=== PATIENT | female | born 1960 | race Caucasian/White ===

== ENCOUNTER 2018-06-02 07:25 | Outpatient (REF) | payer BC, SELFPAY ==
[2018-06-02 13:14] LABS: Hemoglobin A1C 6.4 % (4.5-6.2)
== END 2018-06-02 07:26 ==
LOC: NCHCN 07:25
PROVIDERS: PCP Family Medicine; Visit Provider Family Medicine
DX: E11.9 Type 2 diabetes mellitus without complications (principal)
CPT/HCPCS: 83036

== ENCOUNTER 2018-08-10 00:44 | Outpatient (CLI) | payer BC, SELFPAY ==
--- NOTE | 2018-08-10 11:30 | DI.MAMMO_ITS ---
SYMPTOM/DIAGNOSIS: SCREENING, Z12.31 MAMMOGRAMS: Mammograms were interpreted according to the usual protocol including computer analysis with CAD system, tomosynthesis and C view imaging. Comparison is made with exams from [id number]. The breasts are composed of heterogeneously dense fibroglandular tissue, breast density, Category C. No suspicious masses or suspicious microcalcifications are seen. There has been no significant change. IMPRESSION: Category 1C, negative mammogram. Yearly screening mammography is recommended. [facility] ASSESSMENT OF FINDINGS: Negative. Category 1. Patient will receive a letter notifying them of these results. Bi-RADS category C. The breasts are heterogeneously dense, which may obscure small masses.
== END 2018-08-10 01:04 ==
PROVIDERS: PCP Family Medicine; Visit Provider Family Medicine
DX: Z12.31 Encounter for screening mammogram for malignant neoplasm of breast (principal)
CPT/HCPCS: 77063; 77067

== ENCOUNTER 2019-03-21 10:42 | Outpatient (REF) | payer OTHER, SELFPAY ==
[2019-03-21 20:01] LABS: COMMENT (LAB VIEW ONLY) 193.18 mg/dL; Microalb ug/mg Crea 12.2 ug/mg Cr
== END 2019-03-21 11:02 ==
LOC: NCHCN 10:42
PROVIDERS: PCP Family Medicine; Visit Provider Family Medicine
DX: E11.9 Type 2 diabetes mellitus without complications (principal)
CPT/HCPCS: 82043; 82570

== ENCOUNTER 2019-08-12 12:50 | Outpatient (REF) | payer OTHER, SELFPAY ==
[2019-08-12 14:21] LABS: Anion Gap 10.9 mmol/L (3-11); BUN 13 mg/dL (7-18); CO2 26.1 mmol/L (21.0-32.0); CREATININE 0.67 mg/dL (0.55-1.02); Calcium 8.9 mg/dL (8.5-10.1); Chloride 105 mmol/L (98-107); Glucose 135 mg/dL (70-100); Potassium 4.2 mmol/L (3.5-5.1); Sodium 142 mmol/L (136-145); TSH (W/Ref FT4) 1.81 uIU/mL (0.36-3.74)
== END 2019-08-12 13:10 ==
LOC: NCHCN 12:50
PROVIDERS: PCP Family Medicine; Visit Provider Family Medicine
DX: E11.9 Type 2 diabetes mellitus without complications (principal)
CPT/HCPCS: 80048; 84443

== ENCOUNTER 2020-04-27 10:12 | Outpatient (REF) | payer OTHER, SELFPAY ==
[2020-04-27 18:11] LABS: HCT 41.8 % (36.0-46.0); HGB 13.2 g/dL (12.0-15.5); Mean Corp. HGB Concentration 31.6 g/dL (32.0-36.0); Mean Corpuscular Hemoglobin 28.3 pg (27.0-33.0); Mean Corpuscular Volume 89.5 fL (80-95); Platelet Count 197 x1000/uL (130-400); RBC 4.67 m/cumm (4.00-5.20); RBC Distribution Width 12.9 % (11.7-14.6); White Blood Cell Count 5.67 k/cumm (4.4-10.8)
[2020-04-27 18:41] LABS: ALT 36 U/L (14-59); AST 21 U/L (15-37); Albumin 4.1 g/dL (3.4-5.0); Alkaline Phosphatase 92 U/L (46-116); Amylase 48 U/L (25-115); Anion Gap 9.4 mmol/L (3-11); BUN 13 mg/dL (7-18); Bilirubin, Total 0.6 mg/dL (0.2-1.0); CO2 27.6 mmol/L (21.0-32.0); CREATININE 0.66 mg/dL (0.55-1.02); Calcium 8.9 mg/dL (8.5-10.1); Chloride 103 mmol/L (98-107); Glucose 117 mg/dL (74-106); Lipase 114 U/L (73-393); Potassium 4.2 mmol/L (3.5-5.1); Sodium 140 mmol/L (136-145)
[2020-04-27 18:52] LABS: Hemoglobin A1C 6.5 % (3.8-5.6)
== END 2020-04-27 10:32 ==
LOC: NCHCN 10:12
PROVIDERS: PCP Family Medicine; Visit Provider Family Medicine
DX: R10.11 Right upper quadrant pain (principal); E11.9 Type 2 diabetes mellitus without complications; K86.1 Other chronic pancreatitis
CPT/HCPCS: 80053; 83690; 85027; 82150; 83036

== ENCOUNTER 2020-06-20 04:38 | Outpatient (CLI) | payer OTHER, SELFPAY ==
--- NOTE | 2020-06-20 | DI.US_ITS ---
EXAM: MG MAMMO DIAGNOSTIC BI CLINICAL HISTORY: MASS RT AXILLA, R22.31. TECHNIQUE: Craniocaudal and mediolateral oblique Full Field Digital Mammography views with Computer Aided Diagnosis followed by Tomosynthesis and right breast ultrasound. COMPARISON: Comparison with previous examinations. FINDINGS: Mammography/Tomosynthesis: Masses/Architectural Distortion: None seen. Microcalcifictions: No suspicious pleomorphic-type are seen. Skin Thickening/Nipple Retraction: None. Right breast US: Echotexture: Normal appearance of the glandular tissue. Shadowing: No suspicious foci. Cyst: None. Solid lesions: Benign-appearing lymph nodes are seen in the right axilla corresponding to the palpabl e abnormality. The largest measures 3.7 x 1.1 x 1.9 cm. Ductal dilation: None. IMPRESSION: 1. No evidence of malignancy is noted. 2. Unless there is more urgent need, follow-up screening mammography is recommended, as per [employer] [employer] guidelines. 3. The findings were discussed with the patient on the date of the examination. BI-RADS Category 1 - Negative Breast Density - Category C - Heterogeneously dense The mammogram demonstrates the patient's breast tissue is dense. Dense breast tissue is very common a nd is not abnormal but dense breast tissue can make it harder to find cancer on a mammogram. Also, de nse breast tissue may increase their breast cancer risk. This information about the result of the [facility] mogram report was provided to the patient to raise their awareness. Use this report when you speak wi th the patient about their risks for breast cancer, which includes their family history. At that time , you may recommend for more screening tests (Ultrasound or MRI) as they might be useful based on the ir risk. A negative radiographic report should not delay biopsy if a dominant or clinically suspicious mass is present. Up to ten percent of cancers are not identified on mammography. A negative report may reinforce clinical impression. Adenosis and dense breasts may obscure an underlying neoplasm. False positive reports average 6 to 10%. Patient will receive a letter notifying them of these results.
== END 2020-06-20 04:58 ==
PROVIDERS: PCP Family Medicine; Visit Provider Family Medicine
DX: R22.31 Localized swelling, mass and lump, right upper limb (principal); R92.2 Inconclusive mammogram
CPT/HCPCS: 76642; 77062; 77066; G0279

== ENCOUNTER 2020-06-20 04:39 | Outpatient (CLI) | payer OTHER, SELFPAY ==
--- NOTE | 2020-06-20 | DI.RAD_ITS ---
EXAM: XR ANKLE RT COMPLETE CLINICAL HISTORY: ANKLE JOINT PAIN RT, M25.571, TWISTED ANKLE. TECHNIQUE: 2D digital imaging was performed. COMPARISON: No exams were available for comparison FINDINGS: BONES: No acute fracture is present. No bony destructive lesion is seen. JOINTS: The ankle mortise is normally aligned. SOFT TISSUE: Normal. IMPRESSION: Unremarkable radiographs of the right ankle. DATA REPOSITORY: RADIATION DOSE DELIVERED:
== END 2020-06-20 04:59 ==
PROVIDERS: PCP Family Medicine; Visit Provider Family Medicine
DX: M25.571 Pain in right ankle and joints of right foot (principal)
CPT/HCPCS: 73610

== ENCOUNTER 2020-07-27 07:46 | Outpatient (CLI) | payer OTHER, SELFPAY ==
[2020-07-29 10:39] LABS: COVID-19 RT-PCR Result NEGATIVE (Negative)
== END 2020-07-27 08:06 ==
PROVIDERS: PCP Family Medicine; Visit Provider Surgery
DX: Z11.59 Encounter for screening for other viral diseases (principal); Z01.818 Encounter for other preprocedural examination
CPT/HCPCS: U0003

== ENCOUNTER 2020-07-31 06:27 | Day surgery (SDC) | payer OTHER, SELFPAY ==
[2020-07-31 06:30] VITALS: BP 136/76; PULSE 74; RESP 16; TEMP 36.6; O2SAT 98
[2020-07-31] MEDS: Lactated Ringers 1,000 ML 80 ML IV (06:57)
--- NOTE | 2020-07-31 07:01 | HPE_ITS ---
Date of service: 07/31/20 Time of Service: 07:01 Assessment and Plan Assessment and plan (1) Mass of right axilla: Status: Acute Assessment and plan: This is may represent a lipoma, prominent breast ti ssue in the tail of the breast or lymphadenopathy. It is bothersome for the patient and she would like it removed. This would need to be done in the operating room. The risks of infection, bleeding, seroma, recurrence discussed. History of Present Illness Narrative: A few months ago noted a lump in the right axilla. Has increased in size. Area is not painful, but annoying. No infection. No fever or unexplained weight loss. No other lumps, no breast masses. History of fibrocystic breast change. US showed benign-appearing lymph nodes are seen in the right axilla corresponding to the palpable abnormality. The largest measures 3.7 x 1.1 x 1.9 cm. Mammogram in June normal. Maternal GM with breast cancer Review of Systems All systems reviewed & are unremarkable except as noted in HPI and below PFSH Medical History Back pain Chronic pancreatitis Depression Diabetes Eczema Family history of colon cancer HSV (herpes simplex virus) anogenital infection Hyperlipidemia Insomnia Lactose intolerance Migraine Osteoarthritis of fingers of both hands Right upper quadrant abdominal pain Surgical History History of surgical removal of ganglion cyst x2 S/P cervical disc replacement 2001 Family History Grandmother Personal history of malignant neoplasm Breast Social History Smoking/Tobacco Use Status: Never Alcohol Intake: current Alcohol Intake frequency: holidays/special occasions only Drug use: Never Substance use type: does not use Do you feel safe at home: Yes Do you feel safe in your relationship?: Yes Meds Home Medications and Allergies Home Medications Medication Instructions Recorded Confirmed Type valacyclovir [Valtrex] 500 mg PO DAILY 05/01/14 07/31/20 History metformin 500 mg PO BID tab-cap 05/18/15 07/31/20 History atorvastatin [Lipitor] 20 mg PO DAILY tab-cap 02/23/17 07/31/20 History cholecalciferol (vitamin D3) 1,000 unit PO DAILY 02/23/17 07/31/20 History vitamin E mixed 400 unit PO DAILY 02/23/17 07/31/20 History fluticasone 100 mcg-salmeterol 50 1 inh IH BID 06/11/20 07/27/20 History mcg/dose blistr powdr for inhalation sertraline 25 mg tablet 25 mg PO BID tab 06/11/20 07/31/20 History propranolol 60 mg PO DAILY 07/27/20 07/31/20 History Allergies Allergy/AdvReac Type Severity Reaction Status Date / Time erythromycin base Allergy Intermediate Hives Unverified 07/31/20 06:36 [Erythromycin Base] tetracycline [Tetracycline] Allergy Intermediate Hives Unverified 07/31/20 06:36 latex Allergy Mild Skin Rash Unverified 07/31/20 06:36 lactose AdvReac Mild GI Unverified 07/31/20 06:36 disturbance morphine AdvReac Mild Unverified 07/31/20 06:36 Exam Narrative Exam Narrative: No acute distress Lungs CTA Heart RRR Right axilla with poorly defined mass at posterior edge of pectoralis. Approximately 4cm in size. Results Last Vital Signs Temp 97.9 F 07/31/20 06:30 Pulse 74 07/31/20 06:30 Resp 16 07/31/20 06:30 BP 136/76 07/31/20 06:30 Pulse Ox 98 07/31/20 06:30 COVID-19 Screening Have you,or household,traveled outside [place] in last 14 days?: No Had IN PERSON contact w/suspected or confirmed C-19 person: No
[2020-07-31] MEDS: ceFAZolin 2 GM/50 ML BAG IVPB (07:25)
--- NOTE | 2020-07-31 08:15 | LYM_PTH ---
PATIENT: Tomasa Monge LOC: [facility] U#:[id number] AGE/SX: 60/F ROOM: RE07/31/[address]: Mamie Umaña MD : 1960 BED: DIS: 07/31/2020 SPEC #: [id number] RECD: 07/31/20 12:23 STATUS: TRIXIE REQ #: [id number] JUAN LUIS: 07/31/20 08:[address]: Mamie Umaña DEPT: Surgical Specimen RECD BY: Tamy Singer ENTERED: 07/31/20 12:30 SP TYPE: LYM OTHR DR: Kelly Elizabeth Tissues: LYMPH NODE BIOPSY 1 - FLOW CYTOMETRY NODE/TISSUE Procedures: GROSS AND MICRO LEVEL 4 IMMUNOPEROXIDASE STAIN FLOW CYTOMETRY LYMPHOMA PNL Comments: [id number] (FLOW CYTOMETRY - [id number])
[2020-07-31] MEDS: Bupivacaine 0.5% Pres-Free 30 ML VIAL (08:25)
--- NOTE | 2020-07-31 08:35 | W.PM.DSUDISC ---
Discharge Plan Disposition Patient Disposition: HOME Condition: Good Discharge Details Reason For Visit: Excision right axillary mass Attending Provider: Mamie Umaña Primary Care Provider: Kelly Elizabeth Home Meds and New Rx's Prescriptions: Continued fluticasone propion-salmeterol [Advair Diskus] 100-50 mcg/dose blister with device 1 inh IH BID RF: 0 sertraline 25 mg tablet 25 mg PO BID RF: 0 metformin 500 MG tablet 500 mg PO BID RF: 0 atorvastatin [Lipitor] 10 MG tablet 20 mg PO DAILY RF: 0 cholecalciferol (vitamin D3) 1,000 UNIT capsule 1,000 unit PO DAILY RF: 0 vitamin E mixed 400 UNIT tablet 400 unit PO DAILY RF: 0 valacyclovir [Valtrex] 500 MG tablet 500 mg PO DAILY RF: 0 propranolol 60 mg Capsule,Extended Release 24 Hr 60 mg PO DAILY RF: 0 Discharge Instructions Additional Instructions: The top bandage can be removed tomorrow. The steri strips will usually stick for about a week. When the edges start to curl up, they can be removed. It is okay to shower tomorrow, the water can run over the steri strips Do not swim or soak in a tub for two weeks Call for any concerns including fever, increased pain, incision redness or drainage. It is normal to have swelling under the incision. This may last for 4-6 weeks. If this is bothersome the fluid can be aspirated in the office. Call as needed. Keep arm activity light for a week or two. Walking and stairs are fine. May use Tylenol alternating with ibuprofen for pain control. Ice is also an option. The maximum dose for Tylenol is 4000 mg/day. May use ibuprofen 800 mg every 8 hours as needed. Activity:: Activity as Tolerated Remove Dressings/Wound Care:: 24 hours Shower/Bathe:: 24 hours Diet:: As Tolerated Discharge Orders Discharge Orders: Discharge Order (Routine); Ordered 07/31/20 Ordered By: Mamie Umaña DS: Diagnosis Discharge Diagnosis (1) Axillary adenopathy: Status: Acute
[2020-07-31 08:57] VITALS: BP 102/54; PULSE 62; RESP 18; TEMP 36.4; O2SAT 95
[2020-07-31] MEDS: Acetaminophen 325 MG TAB 650 MG PO (09:40)
--- NOTE | 2020-07-31 12:46 | W.PM.OP ---
Operative Note Operative Note DATE OF PROCEDURE: 07/31/20 PRE-OP DIAGNOSIS: Right axillary mass POST-OP DIAGNOSIS: other (Right axillary lymphadenopathy) PROCEDURE: Excision right axillary lymph nodes SURGEON: Mamie Umaña ANESTHESIA: MAC and local Indications: This 60 year old woman presented with a fullness in her right axilla that has increased slightly in size. Mammogram normal. US showed enlarged but benign appearing nodes. The mass is bothersome and she requests removal. Procedure Description: She was placed supine on the operating table and after sedation was prepped and draped sterilely. The right axillary mass had been marked preoperatively. The skin was infiltrated with local anesthetic and a transverse incision made. Subcutaneous tissue was divided with cautery down into the axillary fat. There is no evidence of subcutaneous lipoma. Palpation of the axilla revealed a cluster of lymph nodes that were somewhat prominent. This was grasped with an Allis and carefully excised. Any small lymphatic channels were clipped before dividing. It was estimated there were perhaps 5 or 6 nodes in the packet. This was sent to pathology fresh. There was good hemostasis. The wound was irrigated and suctioned clean. The skin was closed with a 4 Monocryl subcuticular stitch. She tolerated procedure well stable to recovery.
== END 2020-07-31 10:10 | disposition home or self-care (01) ==
PROVIDERS: PCP Family Medicine; Visit Provider Surgery
PROC: (CPT 38500; principal; 2020-07-31 07:30)
DX: R59.0 Localized enlarged lymph nodes (principal); E11.9 Type 2 diabetes mellitus without complications; E78.5 Hyperlipidemia, unspecified
CPT/HCPCS: 38500; 88305; NC; 88184; 88185; 88361; J0690; J1885; J2250; J2405

== ENCOUNTER 2020-09-07 14:03 | Outpatient (REF) | payer OTHER, SELFPAY ==
[2020-09-07 20:50] LABS: Hemoglobin A1C 6.8 % (<5.7)
== END 2020-09-07 14:23 ==
LOC: NCHCN 14:03
PROVIDERS: PCP Family Medicine; Visit Provider Family Medicine
DX: E11.9 Type 2 diabetes mellitus without complications (principal)
CPT/HCPCS: 83036

== ENCOUNTER 2020-12-10 14:12 | Outpatient (REF) | payer OTHER, SELFPAY ==
--- NOTE | 2020-12-10 10:45 | PAPFT_PTH ---
PATIENT: Tomasa Monge LOC: [facility]#:[id number] AGE/SX: 60/F ROOM: RE12/10/[address]: Kelly Elizabeth : 1960 BED: DIS: 12/10/2020 SPEC #: [id number] RECD: 12/10/20 18:24 STATUS: TRIXIE RENaty #: [id number] JUAN LUIS: 12/10/20 10:[address]: Kelly Elizabeth DEPT: [facility] Cytology RECD BY: Tamy Singer Tissues: 1 - CX/ENDOCX FOR PAP SMEARS Procedures: PAP THIN PREP/UVM Screening HPV DNA PROBE Comments: [id number] (HPV 16& 18/45)
== END 2020-12-10 14:13 | disposition home or self-care (01) ==
LOC: NCHCN 14:12
PROVIDERS: PCP Family Medicine; Visit Provider Family Medicine
DX: Z12.4 Encounter for screening for malignant neoplasm of cervix (principal); Z11.51 Encounter for screening for human papillomavirus (HPV); R87.810 Cervical high risk human papillomavirus (HPV) DNA test positive; Z00.00 Encounter for general adult medical examination without abnormal findings
CPT/HCPCS: 88142; 87624

== ENCOUNTER 2020-12-21 04:25 | Outpatient (CLI) | payer OTHER, SELFPAY ==
--- NOTE | 2020-12-21 | DI.US_ITS ---
EXAM: US ABDOMEN CLINICAL HISTORY: EPIGASTRIC ABD PAIN, R10.13,H/O PRIOR PANCREATITIS TECHNIQUE: Ultrasound abdomen performed using standard protocol. COMPARISON: US ABD PELVIS TRANSVAG from 09/14/2012 FINDINGS: ABDOMINAL AORTA AND IVC: Visualized portions normal caliber. PANCREAS: Normal where visualized. LIVER: The liver measures 13.4 cm in length. Hepatopedal flow in the Portal Vein. There is diffuse i ncreased echogenicity of the liver consistent with fatty infiltration. GALLBLADDER: No evidence of cholelithiasis. No evidence of wall thickening. No pericholecystic fluid identified. There are 2 echogenic in mobile nodules along the wall of the gallbladder. The smaller m easures 3 mm, the larger measures 4 mm. These likely reflect small polyps. BILIARY SYSTEM: Common bile duct measures < 7 mm. No intrahepatic biliary ductal dilation. LOAIZA'S SIGN: Negative. KIDNEYS: Kidneys are symmetric in size. No evidence of renal calculi. No evidence of hydronephrosis. No renal mass or cyst identified. SPLEEN: Not enlarged. ASCITES: None seen. IMPRESSION: 1. Hepatic steatosis. 2. Probable gallbladder polyps. DATA REPOSITORY:
== END 2020-12-21 04:45 ==
PROVIDERS: PCP Family Medicine; Visit Provider Family Medicine
DX: K76.0 Fatty (change of) liver, not elsewhere classified (principal)
CPT/HCPCS: 76700

== ENCOUNTER 2021-03-07 20:21 | Outpatient (REF) | payer OTHER, SELFPAY ==
[2021-03-07 16:47] LABS: Hemoglobin A1C 6.3 % (<5.7)
[2021-03-07 16:49] LABS: ALT 47 U/L (14-59); AST 29 U/L (15-37); Albumin 4.3 g/dL (3.4-5.0); Alkaline Phosphatase 98 U/L (46-116); Anion Gap 12.2 mmol/L (3-11); BUN 17 mg/dL (7-18); Bilirubin, Total 0.7 mg/dL (0.2-1.0); CO2 25.8 mmol/L (21.0-32.0); CREATININE 0.6 mg/dL (0.55-1.02); Calcium 8.7 mg/dL (8.5-10.1); Calculated LDL 66 mg/dL (<100); Chloride 103 mmol/L (98-107); Cholesterol 145 mg/dL (<200); Glucose 118 mg/dL (74-106); HDL Cholesterol 55 mg/dL (40-60); Magnesium 2.2 mg/dL (1.8-2.4); Potassium 4.5 mmol/L (3.5-5.1); Sodium 141 mmol/L (136-145); Total Protein 7.5 g/dL (6.4-8.2); Triglyceride 121 mg/dL (<150)
[2021-03-07 17:01] LABS: Amylase 53 U/L (25-115); Lipase 119 U/L (73-393)
== END 2021-03-07 20:22 | disposition home or self-care (01) ==
LOC: NCHCN 20:21
PROVIDERS: PCP Family Medicine; Visit Provider Family Medicine
DX: E78.5 Hyperlipidemia, unspecified (principal); E11.9 Type 2 diabetes mellitus without complications; K86.1 Other chronic pancreatitis; R10.13 Epigastric pain
CPT/HCPCS: 80053; 80061; 83690; 82150; 83036; 83735

== ENCOUNTER 2021-11-07 18:15 | Outpatient (REF) | payer OTHER, SELFPAY ==
[2021-11-08 17:09] LABS: COVID-19 RT-PCR UVMMC Result Negative (Negative)
== END 2021-11-07 18:16 | disposition home or self-care (01) ==
LOC: NCHCN 18:15
PROVIDERS: PCP Family Medicine; Visit Provider Family Medicine
DX: Z20.822 Contact with and (suspected) exposure to COVID-19 (principal); J06.9 Acute upper respiratory infection, unspecified
CPT/HCPCS: U0003

== ENCOUNTER 2021-12-18 18:17 | Outpatient (REF) | payer OTHER, SELFPAY ==
--- NOTE | 2021-12-18 13:30 | PAPFT_PTH ---
PATIENT: Tomasa Monge LOC: [facility]#:[id number] AGE/SX: 61/F ROOM: RE12/18/[address]: Kelly Elizabeth : 1960 BED: DIS: 12/18/2021 SPEC #: [id number] RECD: 12/19/21 12:57 STATUS: TRIXIE RENaty #: [id number] JUAN LUIS: 12/18/21 13:[address]: Kelly Elizabeth DEPT: [facility] Cytology RECD BY: Tamy Singer Tissues: 1 - CX/ENDOCX FOR PAP SMEARS Procedures: PAP THIN PREP/UVM Screening HPV DNA PROBE Comments: [id number]
[2021-12-18 22:09] LABS: COMMENT (LAB VIEW ONLY) 156.36 mg/dL
[2021-12-18 22:17] LABS: BUN 14 mg/dL (7-18); CREATININE 0.6 mg/dL (0.55-1.02); Calcium 9.2 mg/dL (8.5-10.1); Chloride 103 mmol/L (98-107); Glucose 102 mg/dL (74-106); Sodium 140 mmol/L (136-145)
[2021-12-20 10:10] LABS: HIV-1/2 Ag & Ab Screen Negative (Negative)
[2021-12-20 19:58] LABS: TSH (W/Ref FT4) 0.97 uIU/mL (0.36-3.74)
== END 2021-12-18 18:18 | disposition home or self-care (01) ==
LOC: NCHCN 18:17
PROVIDERS: PCP Family Medicine; Visit Provider Family Medicine
DX: Z00.00 Encounter for general adult medical examination without abnormal findings (principal); E11.9 Type 2 diabetes mellitus without complications; E78.5 Hyperlipidemia, unspecified; Z12.4 Encounter for screening for malignant neoplasm of cervix; Z11.51 Encounter for screening for human papillomavirus (HPV); Z11.4 Encounter for screening for human immunodeficiency virus [HIV]
CPT/HCPCS: 80048; 87389; 88142; 82043; 82570; 82607; 82746; 84443; 87624

== ENCOUNTER 2021-12-30 14:20 | Outpatient (REF) | payer OTHER, SELFPAY ==
[2021-12-30 19:19] LABS: Vitamin B12 686 pg/mL (193-986)
[2021-12-30 20:12] LABS: Folate > 20.0 ng/mL (8.6-20.0)
== END 2021-12-30 14:21 | disposition home or self-care (01) ==
LOC: NCHCN 14:20
PROVIDERS: PCP Family Medicine; Visit Provider Family Medicine
DX: Z00.00 Encounter for general adult medical examination without abnormal findings (principal); R41.3 Other amnesia; F32.9 Major depressive disorder, single episode, unspecified
CPT/HCPCS: 82607; 82746

== ENCOUNTER 2022-04-09 11:23 | Day surgery (SDC) | payer OTHER, SELFPAY ==
--- NOTE | 2022-04-09 06:58 | W.COLOREPORT ---
Colonoscopy Report Date of procedure: 04/09/22 Pre-op diagnosis general: Colon Cnacer screening Post-op diagnosis procedure note: same Procedure: Colonoscopy Surgeon: Lluvia Maguire Anesthesia Type: General:No Airway Estimated blood loss (mL): 0 Pathology: none sent Complications: None Disposition: same day Indications: The patient is here for Colonoscopy pre-op.?Her last screening was in 2014, which was unremarkable. She reports a family history of colon cancer in her maternal Grandfather.?She has not had any bowel habit changes. -Discussed colonoscopy bowel prep as well as the procedure. Discussed possible complications of the procedure to include bleeding, pain, perforation, missed small lesion/polyp, sore throat, aspiration and adverse reaction to the medications. Questions were answered to patient?s satisfaction. No guarantees were implied or given.? Patient will hold her vitamins and supplements x 5 days prior to her procedure. P// Colonoscopy under sedation. Prep: Miralax/Dulcolax Procedure Description: After informed consent was obtained the patient was taken to the procedure room and placed in a left decubitous position. Monitors were applied and a time out was done. The patients name, date of , procedure, allergies to medications and metal in their body was reviewed. The patient was then sedated. Once sedated and comfortable a rectal exam was done. External exam was normal. Internal exam revealed a normal sphincter tone and no palpable masses. The scope was then introduced and retro-flexed. No internal hemorrhoids, polyps or masses were identified on retro-flexion. The scope was then advanced to the cecum without difficulty. The ileocecal vlave and appendiceal orifice were identified. The prep was adequate. The scope was then slowly retracted over 8 minutes back into the rectum. There were no polyps. There was mild sigmoid diverticulosis noted. The scope was removed and the patient was woken up and taken back to Same day surgery in stable condition. The patient tolerated the procedure well and there were no immediate complications. Follow up: The patient should follow up in 5 years unless they develop changes in bowel habits or other new gastrointestinal complaints.
--- NOTE | 2022-04-09 07:00 | W.PM.DSUDISC ---
Discharge Plan Disposition Patient Disposition: HOME Condition: Good Discharge Details Reason For Visit: Colonoscopy Attending Provider: Lluvia Maguire Primary Care Provider: Kelly Elizabeth Home Meds and New Rx's Prescriptions: Continued fluticasone propion-salmeterol [Advair Diskus] 100-50 mcg/dose blister with device 1 inh IH BID sertraline [Zoloft] 25 mg tablet 25 mg PO BID atorvastatin [Lipitor] 10 MG tablet 20 mg PO DAILY cholecalciferol (vitamin D3) 1,000 UNIT capsule 1,000 unit PO DAILY vitamin E mixed 400 UNIT tablet 400 unit PO DAILY krill oil 500 mg capsule 500 mg PO DAILY vitamin B complex Capsule 1 cap PO DAILY multivitamin Tablet 1 tab PO DAILY acyclovir 400 mg tablet 400 mg PO Q OTHER DAY amitriptyline 10 mg tablet 20 mg PO QHS propranolol 60 mg Capsule,Extended Release 24 Hr 60 mg PO DAILY Discontinued bisacodyl [Dulcolax (bisacodyl)] 5 mg tablet,delayed release (DR/EC) 5 mg PO ONCE Qty: 4 0RF Rx Instructions: Take according to provider's instructions for colonoscopy prep. polyethylene glycol 3350 17 gram/dose powder 17 g PO ONCE Qty: 238 0RF Rx Instructions: To be taken as directed by prescriber's office for colonoscopy prep. Discharge Instructions Additional Instructions: Findings: Normal colonoscopy Follow up: 5 years for family history Please call if you develop: fevers >101.5 Nausea or Vomiting Abdominal pain that is not transient Rectal bleeding that is more then a tbsp A hard abdomen and inability to pass gas DAY SURGERY UNIT POST ENDOSCOPY INSTRUCTIONS Instructions for everyone who is given Anesthesia: For your safety, please do the following for the next 24 Hours: a. Do not drive or operate dangerous equipment b. Do not drink alcohol beverages or use any recreational drugs for the first 24 hours or while taking pain medications. The medications in your body may have a reaction that can be dangerous. c. Do not make any important decisions or sign any important papers 1. Generally there are no restrictions on your activity after a day or so has gone by, but you may feel a bit fatigued for a few days. 2. After you arrive home you may have a light meal and return to a normal diet as you can tolerate it without feeling sick to your stomach. 3. After surgery, you may feel pain or discomfort. This should be only transient, but if it persists please contact your doctor. 4. If there are any questions regarding the findings of your procedure, please feel free to contact your doctor. 6. If you are unable to contact your doctor with a problem, contact the hospital at [phone]. 7. Continue all your regular medications unless directed otherwise. I understand the above instructions and have no questions. Signature of Patient or Responsible Adult Escort Date/Time Name of Responsible Adult Escort Signature of Nurse Date/Time Activity:: Activity as Tolerated Diet:: As Tolerated Discharge Orders Discharge Orders: Discharge Order (Routine); Ordered 04/09/22 Ordered By: Lluvia Maguire
[2022-04-09 11:53] VITALS: BP 136/84; PULSE 90; RESP 17; TEMP 36.6; O2SAT 96
[2022-04-09] MEDS: Lactated Ringers 1,000 ML 80 ML IV (12:14)
--- NOTE | 2022-04-09 12:27 | ANES.PREOP_ITS ---
General Info Date of Service Date Performed: 04/09/22 Height: 5 ft 6 in Weight: 80.5 kg Body Mass Index (BMI): 28.6 Surgical Procedure: Operation Date: 04/09/22 12:50 Proposed Procedure Side Surgeon georgiana Maguire MD Meds Allergies and Home Medications Allergies Allergy/AdvReac Type Severity Reaction Status Date / Time erythromycin base Allergy Intermediate Hives Unverified 04/09/22 11:48 [Erythromycin Base] tetracycline [Tetracycline] Allergy Intermediate Hives Unverified 04/09/22 11:48 latex Allergy Mild Skin Rash Unverified 04/09/22 11:48 lactose AdvReac Mild GI Unverified 04/09/22 11:48 disturbance morphine AdvReac Mild Nausea Unverified 04/09/22 11:48 Home Medication Medication Instructions Recorded atorvastatin 10 mg tablet (Lipitor) 20 mg PO DAILY 02/23/17 cholecalciferol (vitamin D3) 25 1,000 unit PO DAILY 02/23/17 mcg (1,000 unit) capsule vitamin E mixed 400 unit tablet 400 unit PO DAILY 02/23/17 fluticasone 100 mcg-salmeterol 50 1 inh inhalation BID 06/11/20 mcg/dose blistr powdr for inhalation (Advair Diskus) sertraline 25 mg tablet (Zoloft) 25 mg PO BID 06/11/20 propranolol 60 mg capsule,24 60 mg PO DAILY 07/27/20 hr,extended release acyclovir 400 mg tablet 400 mg PO Q OTHER DAY 08/16/21 amitriptyline 10 mg tablet 20 mg PO QHS 08/16/21 krill oil 500 mg capsule 500 mg PO DAILY 08/16/21 multivitamin 1 tab PO DAILY 08/16/21 vitamin B complex 1 cap PO DAILY 08/16/21 bisacodyl 5 mg tablet,delayed 5 mg PO ONCE #4 tabs 03/28/22 release (Dulcolax (bisacodyl)) polyethylene glycol 3350 17 17 g PO ONCE #238 grams 03/28/22 gram/dose oral powder Current Visit Medications: Current Medications Generic Name Dose Route Start Last Admin Trade Name Freq PRN Reason Stop Dose Admin Hyoscyamine Sulfate 0.125 mg 04/09/22 07:01 Hyoscyamine 0.125 Mg Sl/Oral/Chew SL DIRECTED PRN Ringer's Solution 1,000 mls @ 80 mls/hr 04/09/22 06:00 04/09/22 12:14 IV 05/08/22 23:59 80 mls/hr INFUSION ABDIAS Administration IV Miscellaneous Supplies 1 each 04/09/22 06:00 Iv Access IV 05/08/22 23:59 DIRECTED ABDIAS Ondansetron HCl 4 mg 04/09/22 07:01 Ondansetron 4 Mg/2 Ml Vial IVP Q4H PRN PRN Nausea / Vomiting Sodium Chloride 0 ml 04/09/22 06:00 Normal Saline Flush 10 Ml Syr IV 05/08/22 23:59 PRN PRN Sodium Chloride 0 ml 04/09/22 06:00 Normal Saline 10 Ml Vial IJ 05/08/22 23:59 DIRECTED PRN Sterile Water 0 ml 04/09/22 06:00 Water,Injection,Sterile 10 Ml Vial IJ 05/08/22 23:59 DIRECTED PRN PFSH Active Problems Active Problems: Problem Status Onset Code Family history of colon cancer Z80.0 Abdominal pain R10.9 Screening for colon cancer Z12.11 Right upper quadrant abdominal pain R10.11 Medical History Medical History Axillary adenopathy Back pain Breast mass, right Chronic pancreatitis Depression Diabetes Eczema HSV (herpes simplex virus) anogenital infection Hyperlipidemia Insomnia Lactose intolerance Mass of right axilla Migraine Osteoarthritis of fingers of both hands Postoperative seroma Trochanteric bursitis of both hips Surgical History Surgical History History of surgical removal of ganglion cyst x2 S/P cervical disc replacement 2001 Tobacco Smoking/Tobacco Use Status: Never Alcohol Alcohol Intake: former Substance Use Substance use: Never Substance use type: does not use Vital Signs and Lab Results Vital Signs Most Recent Vital Signs in EMR: Most Recent Vital Signs Temp Pulse Resp BP Pulse Ox 36.6 C 90 17 136/84 96 04/09/22 11:53 04/09/22 11:53 04/09/22 11:53 04/09/22 11:53 04/09/22 11:53 Point of Care Results Point of Care Results: Finger Stick Blood Glucose 99 04/09/22 12:07 Lab Results Blood Type / Crossmatch: No Data to Display Complete Blood Count: No Data to Display Complete Metabolic Panel: No Data to Display Liver Function Panel: No Data to Display Coagulation Panel: No Data to Display Cardiac Panel: No Data to Display Arterial Blood Gas: No Data to Display Venous Blood Gas: No Data to Display Pancreas Panel: No Data to Display Thyroid Panel: No Data to Display Infectious Disease: No Data to Display Blood Cultures: No Data to Display Toxicology Panel: No Data to Display Anesthesia Assessment and Plan Anesthesia History Personal History: No History of Anesthesia Complications Family History: No Family History of Anesthesia Complications Exercise Tolerance Exercise Tolerance: Metabolic Equivalents>4 Pertinent Negatives Pertinent Negatives: No Symptoms of GERD, No Major Cardiovascular Symptoms or Complaints, No Major Pulmonary Symptoms or Complaints and No History of CVA/TIA Cardiac & Pulmonary Exam Cardiac Exam: Normal S1/S2 Heart Sounds Pulmonary Exam: Clear Bilateral Breath Sounds Implantable Cardiac Device Does patient have a Pacemaker or an ICD?: No Airway Exam Known Difficult Airway: No Mallampati Class: 2 Mouth Opening: Normal (> 3cm) Thyromental Distance: Greater than 3 cm Neck Range of Motion: Limited ROM (s/p cervical discectomy 2002. Reports significant limitation when turning left. Reports slight limitation and demons trated for extension) Neck Circumference: Normal Teeth Condition: Normal Dentition (Reports upper bridge) Tooth Numberin. Broken crown per patient 2. Broken crown per patient ASA Classification ASA Score: ASA 2 Emergency Case?: No NPO Status NPO Status: NPO Clears >2 hours, Solids >8 hours Anesthesia Plan Resuscitation Status: Full Code Anesthesia Technique: General Anesthesia Airway Planned: Natural Airway Monitors Used: Standard Monitors
[2022-04-09 12:46] VITALS: BMI 28.6
[2022-04-09 13:38] VITALS: BP 118/79; PULSE 81; RESP 16; TEMP 36.4; O2SAT 95
[2022-04-09] MEDS: Hyoscyamine 0.125 MG SL/ORAL/CHEW SL (13:48)
[2022-04-09 14:06] VITALS: BP 156/72; PULSE 58; RESP 18; TEMP 36.5; O2SAT 98
--- NOTE | 2022-04-09 14:13 | W.ANESPOSTOP ---
Postoperative Evaluation Date, Time and Location Date Performed: 04/09/22 Time Performed: 14:13 Patient Location: Day Surgery Unit Vital Signs Most Recent Imported Vital Signs: Most Recent Vital Signs Temp Pulse Resp BP Pulse Ox 36.5 C 58 L 18 156/72 H 98 04/09/22 14:06 04/09/22 14:06 04/09/22 14:06 04/09/22 14:06 04/09/22 14:06 Pain Score Most Recent Pain Score: Most Recent Pain Score Pain Level 3 04/09/22 14:06 Assessment Mental Status: Awake (Alert & Oriented to Patient Baseline) Airway and Respiratory Function: Patent airway with normal (patient baseline) respiratory exam Cardiovascular Function: Hemodynamically Stable Hydration Status: Adequately Hydrated Nausea & Vomiting: No Nausea or Vomiting Pain: Pt. Denies Any Pain Peripheral Nerve Block: Patient did not receive a nerve block
== END 2022-04-09 14:37 | disposition home or self-care (01) ==
PROVIDERS: PCP Family Medicine; Visit Provider Surgery
PROC: 0DJD8ZZ Inspection of Lower Intestinal Tract, Via Natural or Artificial Opening Endoscopic (ICD-10-PCS; CPT 45378; principal; 2022-04-09 12:45)
DX: Z12.11 Encounter for screening for malignant neoplasm of colon (principal); Z80.0 Family history of malignant neoplasm of digestive organs; E11.9 Type 2 diabetes mellitus without complications; E78.5 Hyperlipidemia, unspecified
CPT/HCPCS: 45378; J2704; J3490

== ENCOUNTER → 2022-06-17 01:47 | Outpatient (CLI) | payer OTHER, SELFPAY ==
--- NOTE | 2022-06-17 | DI.RAD_ITS ---
Exam(s) XR SHOULDER RT COMPLETE 2+V EXAM: XR SHOULDER RT COMPLETE 2+V CLINICAL HISTORY: RT SHOULDER PAIN, M25.511, ACUTE ON CHRONIC PAIN, W/O IMPROVEMENT TECHNIQUE: COMPARISON: No exams were available for comparison FINDINGS: Five views were obtained. There are amorphous calcifications associated with distal supraspinatus te ndon consistent with a calcific peritendinitis. The cartilaginous joint space of the glenohumeral lisa int appears slightly narrowed and there are prominent marginal osteophytes of the inferior glenoid co nsistent with degenerative change. Slight hypertrophic degenerative changes also noted at the AC nay nt. 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 RADIATION DOSE DELIVERED: Total DLP
--- NOTE | 2022-06-17 14:24 | DI.RAD_ITS ---
Exam(s) XR CERVICAL SPINE COMP 4-5V EXAM: XR CERVICAL SPINE COMP 4-5V CLINICAL HISTORY: UPPER BACK PAIN, M54.9, ACUTE ON CHRONIC NECK PAIN, SURG 20+ YRS AGO TECHNIQUE: COMPARISON: No exams were available for comparison FINDINGS: Five views were obtained. There is a mild cervical kyphosis. Vertebral bodies 6 and 7 are fused, th e patient reportedly had prior surgery. There are moderate hypertrophic degenerative changes of the vertebral endplates, most prominent anteriorly at C5-6. Mild facet hypertrophic degenerative changes also noted. Neural foramina appear well maintained. No fracture or dislocation. IMPRESSION: Mild DJD, no evidence of acute process. RADIATION DOSE DELIVERED: Total DLP
== END ==
PROVIDERS: PCP Family Medicine; Visit Provider Nurse Practitioner Family
DX: M50.322 Other cervical disc degeneration at C5-C6 level (principal)
CPT/HCPCS: 72050; 73030

== ENCOUNTER → 2022-07-29 02:19 | Outpatient (CLI) | payer OTHER, SELFPAY ==
--- NOTE | 2022-07-29 12:45 | DI.MAMMO_ITS ---
Exam(s) MAMMO SCREENING EXAM: MAMMO SCREENING CLINICAL HISTORY: SCREENING, Z12.31 TECHNIQUE: Bilateral full field digital CC and MLO mammographic images were obtained with 3D tomosyn thesis and utilizing computer aided detection (CAD). COMPARISON: Available for comparison. FINDINGS: Masses/Architectural Distortion: There is an area of increased density in the outer left breast on th e craniocaudad view. Microcalcifications: No suspicious pleomorphic-type are seen. Skin Thickening/Nipple Retraction: None. IMPRESSION: 1. Area of increased density in the outer left breast on the craniocaudad view. 2. This area should be further evaluated with a spot compression view and exaggerated left craniocaud ad view. Ultrasound may be indicated at that time. BI-RADS Category 0 - Assessment Incomplete: Need additional imaging evaluation Breast Density - Category C - Heterogeneously dense Breast density category C or D implies that the patient has dense breast tissue. Dense breast tissue is very common and is not abnormal but dense breast tissue can make it harder to find cancer on a ma mmogram. Also, dense breast tissue may increase their breast cancer risk. This information about the result of the mammogram report was provided to the patient to raise their awareness. Use this report when you speak with the patient about their risks for breast cancer, which includes their family hist ory. At that time, you may recommend for more screening tests (Ultrasound or MRI) as they might be us eful based on their risk. A negative radiographic report should not delay biopsy if a dominant or clinically suspicious mass is present. Up to ten percent of cancers are not identified on mammography. A negative report may reinforce clinical impression. Adenosis and dense breasts may obscure an underlying neoplasm. False positive reports average 6 to 10%. Patient will receive a letter notifying them of these results.
== END ==
PROVIDERS: PCP Family Medicine; Visit Provider Family Medicine
DX: Z12.31 Encounter for screening mammogram for malignant neoplasm of breast (principal); R92.8 Other abnormal and inconclusive findings on diagnostic imaging of breast
CPT/HCPCS: 77063; 77067

== ENCOUNTER → 2022-07-31 01:52 | Outpatient (CLI) | payer OTHER, SELFPAY ==
--- NOTE | 2022-07-31 | DI.US_ITS ---
Exam(s) MG MAMMO SCREEN CALL BACK UNI US BREAST LT LIMITED EXAM: MG MAMMO SCREEN CALL BACK UNI and U/S breast LT limited CLINICAL HISTORY: F/U ABNL MAMMO, INCREASED DENSITY IN OUTER LT BREAST. TECHNIQUE: Craniocaudal and mediolateral oblique Full Field Digital Mammography views of the left br east with Computer Aided Diagnosis followed by Tomosynthesis and left breast ultrasound. COMPARISON: Comparison is made with prior examinations. FINDINGS: Mammography/Tomosynthesis: Masses/Architectural Distortion: None seen. Microcalcifictions: No suspicious pleomorphic-type are seen. Skin Thickening/Nipple Retraction: None. Limited left breast US: Echotexture: Normal appearance of the glandular tissue. Shadowing: No suspicious foci. Cyst: There is a 0.4 x 0.2 x 0.4 cm cyst at the 5 o'clock position of the left breast 2 cm from the n ipple. Solid lesions: A benign lymph node is seen in the left axilla. No suspicious solid masses are seen s onographically. Ductal dilation: None. IMPRESSION: 1. No evidence of malignancy is noted. 2. Unless there is more urgent need, follow-up screening mammography is recommended, as per [place] [employer] guidelines. 3. The findings were discussed with the patient on the date of the examination. BI-RADS Category 1 - Negative Breast Density - Category C - Heterogeneously dense Breast density Category C or D implies that the patient has dense breast tissue. Dense breast tissue can make it harder to find cancer on a mammogram. Dense breast tissue is also associated with an incr eased risk of breast cancer. This information about the result of the mammogram report was provided to the patient to raise their awareness. Use this report when you speak with the patient about their risks for breast cancer, which includes their family history. At that time, you may recommend additional screening tests (Ultrasoun d or MRI) as these tests may add significant information. A negative radiographic report should not delay biopsy if a dominant or clinically suspicious mass is present. Up to ten percent of cancers are not identified on mammography. A negative report may reinforce clinical impression. Adenosis and dense breasts may obscure an underlying neoplasm. False positive reports average 6 to 10%. Patient will receive a letter notifying them of these results.
== END ==
PROVIDERS: PCP Family Medicine; Visit Provider Family Medicine
DX: Z12.31 Encounter for screening mammogram for malignant neoplasm of breast (principal); R92.8 Other abnormal and inconclusive findings on diagnostic imaging of breast
CPT/HCPCS: 76642; 77063; 77067

== ENCOUNTER 2022-10-01 15:21 | Outpatient (REF) | payer OTHER, SELFPAY ==
[2022-10-01 15:21] LABS: Anion Gap 7.3 mmol/L (3-11); BUN 12 mg/dL (7-18); CO2 27.7 mmol/L (21.0-32.0); CREATININE 0.6 mg/dL (0.55-1.02); Calcium 9.1 mg/dL (8.5-10.1); Chloride 103 mmol/L (98-107); Estimated GFR 102.06 (mL/min/1.73m2); Glucose 136 mg/dL (74-106); Potassium 4.4 mmol/L (3.5-5.1); Sodium 138 mmol/L (136-145)
== END 2022-10-01 15:22 | disposition home or self-care (01) ==
LOC: NCHCN 15:21
PROVIDERS: PCP Family Medicine; Visit Provider Family Medicine
DX: I10 Essential (primary) hypertension (principal)
CPT/HCPCS: 80048

== ENCOUNTER 2022-11-14 11:23 | Outpatient (REF) | payer OTHER, SELFPAY ==
[2022-11-14 19:02] LABS: COMMENT (LAB VIEW ONLY) 199.53 mg/dL; Microalb ug/mg Crea 10.2 ug/mg Cr
== END 2022-11-14 11:24 | disposition home or self-care (01) ==
LOC: NCHCN 11:23
PROVIDERS: PCP Family Medicine; Visit Provider Family Medicine
DX: E11.9 Type 2 diabetes mellitus without complications (principal)
CPT/HCPCS: 82043; 82570

== ENCOUNTER 2023-06-29 14:31 | Outpatient (REF) | payer OTHER, SELFPAY ==
[2023-06-29 15:18] LABS: Bilirubin Negative (Negative); Blood Negative (Negative); Clarity Clear (Clear); Glucose Negative (Negative); Ketones Negative (Negative); Leukocyte Esterase Trace (Negative); Nitrite Negative (Negative); Specific Gravity 1.025 (1.005-1.025); Urobilinogen 0.2 mg/dL (Up to 0.2)
[2023-06-29 15:32] LABS: Bacteria Moderate HPF (Negative); C & S Indicated? C&S Done As Ordered; Casts Negative LPF (Negative); Crystals Mod Calcium Oxalate HPF (Negative); Epithelial Cells Few HPF (Negative); Mucus Trace (Negative); Other Cells Rare Transitional (Negative); RBC 0-2 HPF (0-2)
== END 2023-06-29 14:32 | disposition home or self-care (01) ==
LOC: NCHCN 14:31
PROVIDERS: PCP Family Medicine; Visit Provider Family Medicine
DX: R35.0 Frequency of micturition (principal)
CPT/HCPCS: 87077; 81003; 81015; 87086; 87186

== ENCOUNTER 2023-09-03 15:53 | Outpatient (REF) | payer OTHER, SELFPAY ==
[2023-09-03 20:37] LABS: Bilirubin Negative (Negative); Blood Negative (Negative); Clarity Clear (Clear); Glucose Negative (Negative); Ketones Negative (Negative); Leukocyte Esterase Moderate (Negative); Nitrite Negative (Negative); Specific Gravity 1.015 (1.005-1.025); Urobilinogen 0.2 mg/dL (Up to 0.2)
[2023-09-03 20:53] LABS: Bacteria Rare HPF (Negative); C & S Indicated? Yes; Casts Negative LPF (Negative); Crystals Negative HPF (Negative); Epithelial Cells Few HPF (Negative); Mucus Trace (Negative); RBC 0-2 HPF (0-2); WBC 20-50 HPF (0-5)
== END 2023-09-03 15:54 | disposition home or self-care (01) ==
LOC: LBN 15:53
PROVIDERS: PCP Family Medicine; Visit Provider Nurse Practitioner Family
DX: R39.89 Other symptoms and signs involving the genitourinary system (principal); R82.998 Other abnormal findings in urine
CPT/HCPCS: 81003; 81015; 87086

== ENCOUNTER 2023-09-16 19:52 | Outpatient (REF) | payer OTHER, SELFPAY ==
[2023-09-16 20:28] LABS: Bilirubin Negative (Negative); Blood Negative (Negative); Clarity Sl Cloudy (Clear); Glucose Negative (Negative); Ketones Negative (Negative); Leukocyte Esterase Negative (Negative); Nitrite Negative (Negative); Specific Gravity >= 1.030 (1.005-1.025); Urobilinogen 0.2 mg/dL (Up to 0.2)
== END 2023-09-16 19:53 | disposition home or self-care (01) ==
LOC: NCHCN 19:52
PROVIDERS: PCP Family Medicine; Visit Provider Family Medicine
DX: R30.0 Dysuria (principal)
CPT/HCPCS: 81003

== ENCOUNTER 2023-10-26 15:23 | Outpatient (REF) | payer OTHER, SELFPAY ==
[2023-10-26 18:14] LABS: Anion Gap 9.7 mmol/L (3-11); BUN 20 mg/dL (7-18); CO2 28.3 mmol/L (21.0-32.0); CREATININE 0.6 mg/dL (0.55-1.02); Calcium 9.5 mg/dL (8.5-10.1); Chloride 102 mmol/L (98-107); Estimated GFR 101.42 (mL/min/1.73m2); Glucose 162 mg/dL (74-106); Potassium 4.3 mmol/L (3.5-5.1); Sodium 140 mmol/L (136-145)
[2023-10-26 18:23] LABS: COMMENT (LAB VIEW ONLY) 138.62 mg/dL
[2023-10-26 19:04] LABS: Hemoglobin A1C 6.4 % (<5.7)
== END 2023-10-26 15:24 | disposition home or self-care (01) ==
LOC: NCHCN 15:23
PROVIDERS: PCP Family Medicine; Visit Provider Family Medicine
DX: E11.9 Type 2 diabetes mellitus without complications (principal); I10 Essential (primary) hypertension
CPT/HCPCS: 80048; 82043; 82570; 83036

== ENCOUNTER 2024-06-30 02:15 | Outpatient (CLI) | payer OTHER, SELFPAY ==
--- NOTE | 2024-06-30 | DI.MAMMO_ITS ---
Exam(s) MAMMO SCREENING EXAM: MAMMO SCREENING CLINICAL HISTORY: SCREENING MAMMO Z12.31 TECHNIQUE: Mammograms were interpreted according to the usual protocol including computer analysis w [employer] CAD system, tomosynthesis and C-view imaging. COMPARISON: 2014 through 2021 FINDINGS: The breasts are composed of scattered fibroglandular densities, Breast Density category B. No suspicious masses or suspicious microcalcifications are seen. No skin thickening or abnormal axillary lymph nodes are seen. There has been no significant change from prior exams. IMPRESSION: BI-RADS Category 1, Negative mammogram Yearly screening mammography is recommended. Breast Density - Category B, scattered fibroglandular densities. A negative radiographic report should not delay biopsy if a dominant or clinically suspicious mass is present. Up to ten percent of cancers are not identified on mammography. A negative report may reinforce clinical impression. Adenosis and dense breasts may obscure an underlying neoplasm. False positive reports average 6 to 10%. Patient will receive a letter notifying them of these results.
== END 2024-06-30 02:35 ==
LOC: DI 02:15
PROVIDERS: PCP Family Medicine; Visit Provider Family Medicine
DX: Z12.31 Encounter for screening mammogram for malignant neoplasm of breast (principal)
CPT/HCPCS: 77063; 77067

== ENCOUNTER 2025-02-03 22:17 | Outpatient (REF) | payer OTHER, SELFPAY ==
[2025-02-03 15:35] LABS: ALT 41 U/L (14-59); AST 23 U/L (15-37); Alkaline Phosphatase 110 U/L (46-116); Anion Gap 10.1 mmol/L (3-11); BUN 17 mg/dL (7-18); Bilirubin, Total 0.6 mg/dL (0.2-1.0); CO2 26.9 mmol/L (21.0-32.0); CREATININE 0.6 mg/dL (0.55-1.02); Calcium 9.4 mg/dL (8.5-10.1); Chloride 104 mmol/L (98-107); Glucose 153 mg/dL (74-106); Potassium 4.4 mmol/L (3.5-5.1); Sodium 141 mmol/L (136-145); Total Protein 7.2 g/dL (6.4-8.2)
[2025-02-03 16:08] LABS: COMMENT (LAB VIEW ONLY) 122.23 mg/dL; Microalb ug/mg Crea 10.3 ug/mg Cr
== END 2025-02-03 22:18 | disposition home or self-care (01) ==
LOC: NCHCN 22:17
PROVIDERS: PCP Family Medicine; Visit Provider Family Medicine
DX: E11.9 Type 2 diabetes mellitus without complications (principal)
CPT/HCPCS: 80053; 82043; 82570